=== PATIENT | male | born 1945 | race Caucasian/White ===

== ENCOUNTER 2018-11-28 16:18 | Emergency (ER) | payer OTHER ==
[2018-11-28] MEDS ORDERED: KETOROLAC 30 MG/ML INJ ONE (17:33)
[2018-11-28] MEDS ORDERED: predniSONE 20 MG TAB ONE (17:34)
--- NOTE | 2018-11-28 18:47 | ER ---
Nurse's Notes [facility] Name: Jimmie Gumsan Jr Age: 73 yrs Sex: Male : 1945 Arrival Date: 11/28/2018 Time: 16:20 Bed 20 Private MD: Diagnosis: Toxic effect of venom of wasps Presentation: 11/28 16:24 Presenting complaint: Patient states: stung by yellow jackets today around 1300, c/o sv pain, body aches, leg cramps. Transition of care: patient was not received from another setting of care. Onset: The symptoms/episode began/occurred acutely, 3 hour(s) ago. Anaphylaxis evaluation, no signs or symptoms of anaphylaxis were noted. Onset of symptoms was November 28, 2018. Risk Assessment: Do you want to hurt yourself or someone else? Patient reports no desire to harm self or others. Care prior to arrival: Medication(s) given: benadryl and motrin taken today. 16:24 Method Of Arrival: Ambulatory sv 16:24 Acuity: LOLA 2 sv 17:45 Initial Sepsis Screen: Does the patient meet any 2 criteria? No. Patient's initial em sepsis screen is negative. Does the patient have a suspected source of infection? No. Patient's initial sepsis screen is negative. Historical: - Allergies: 16:25 Codeine; sv - Immunization history:: Adult Immunizations up to date. - Social history:: Smoking status: Patient/guardian denies using tobacco. - Ebola Screening: : Patient negative for fever greater than or equal to 101.5 degrees Fahrenheit, and additional compatible Ebola Virus Disease symptoms Patient denies exposure to infectious person Patient denies travel to an Ebola-affected area in the 21 days before illness onset No symptoms or risks identified at this time. Screenin:40 Abuse screen: Denies threats or abuse. Nutritional screening: No deficits noted. em Tuberculosis screening: No symptoms or risk factors identified. Fall Risk None identified. Assessment: 17:45 General: Appears in no apparent distress. comfortable, Behavior is calm, cooperative, em Denies fever. Pain: Complains of pain in left hand, right side of neck, back Pain currently is 8 out of 10 on a pain scale. Quality of pain is described as burning, sharp. Neuro: Level of Consciousness is awake, alert, obeys commands, Oriented to person, place, time, situation, Appropriate for age Moves all extremities. Speech is normal. Cardiovascular: Denies chest pain, lightheadedness, nausea, shortness of breath, Capillary refill < 3 seconds Patient's skin is warm and dry. Respiratory: Airway is patent Respiratory effort is even, unlabored, Respiratory pattern is regular, symmetrical, Breath sounds are clear bilaterally. Denies shortness of breath. GI: Abdomen is flat, Patient currently denies nausea, vomiting. Derm: Skin is intact, is healthy with good turgor, Skin is pink, warm \T\ dry. Musculoskeletal: Capillary refill < 3 seconds, Range of motion: intact in all extremities. 17:59 Reassessment: I agree with previous assessment. hb 18:46 Reassessment: Patient appears in no apparent distress at this time. Patient and/or em family updated on plan of care and expected duration. Pain level reassessed. Patient is alert, oriented x 3, equal unlabored respirations, skin warm/dry/pink. rates pain 5/10 Patient states feeling better. Vital Signs: 16:25 BP 161 / 105; Pulse 70; Resp 16; Temp 98.7; Pulse Ox 96% ; Weight 74.84 kg; Height 5 sv ft. 8 in. (172.72 cm); 18:00 BP 148 / 92; Pulse 64; Resp 18; Pulse Ox 97% on R/A; Pain 8/10; em 18:46 BP 163 / 91; Pulse 59; Resp 16; Pulse Ox 99% on R/A; Pain 5/10; em 16:25 Body Mass Index 25.09 (74.84 kg, 172.72 cm) sv ED Course: 16:20 Patient arrived in ED. rg4 16:25 Triage completed. sv 16:26 Arm band placed on. sv 17:13 Tono Orellana LVN is Primary Nurse. em 17:14 Shabbir Nicole PA is PHCP. jr8 17:14 Nolberto Lanza MD is Attending Physician. jr8 17:45 Patient has correct armband on for positive identification. Placed in gown. Bed in low em position. Call light in reach. Pulse ox on. NIBP on. 18:55 No provider procedures requiring assistance completed. Patient did not have IV access em during this emergency room visit. Administered Medications: 17:29 CANCELLED (Other Intervention Used): [place] (7.5 mg-325 mg) 1 tabs PO once; RASS on jr8 ADMIN: Combtv4, Very Agttd3, Agttd2, Rstlss1, AlertClm0, Drwsy-1, Lt Sdtn-2, Mod Sdtn-3, Dp Sdtn-4, UnArsble-5 18:05 Drug: predniSONE 40 mg Route: PO; em 18:55 Follow up: Response: No adverse reaction em 18:05 Drug: TORadol - Ketorolac 15 mg Route: IM; Site: right deltoid; em 18:55 Follow up: Response: No adverse reaction; Pain is decreased em Outcome: 18:45 Discharge ordered by . jr8 18:55 Discharged to home ambulatory, with family. em 18:55 Condition: good 18:55 Discharge instructions given to patient, family, Instructed on discharge instructions, follow up and referral plans. medication usage, Demonstrated understanding of instructions, follow-up care, medications, Prescriptions given X 1. 18:56 Patient left the ED. em Signatures: Kasey Bustos, RN RN Tono Marrero, GARMENT PARTS CUTTER HAND GARMENT PARTS CUTTER HAND em Shabbir Nicole PA PA jr8 Gloria Page, Lazara Reed RN rg4
--- NOTE | 2018-11-28 18:47 | EDPHYS ---
Physician Documentation [facility] Name: Jimmie Gusman Jr Age: 73 yrs Sex: Male : 1945 Arrival Date: 11/28/2018 Time: 16:20 Bed 20 Private MD: ED Physician Nolberto Lanza HPI: 11/28 18:20 This 73 yrs old Male presents to ER via Ambulatory with complaints of Bee jr8 Sting. 18:20 Onset: The symptoms/episode began/occurred 6 hour(s) ago. The patient has not jr8 experienced similar symptoms in the past. The patient has not recently seen a physician. Pt reports he was stung by about 8 bees at home at about 1200 today. Bites behind right ear, back, left arm. Pt reports pain in JOSIE forearms. At home pt took 25mg benadryl, excedrine, and ibuprofen. No signs of anaphylaxis.. Historical: - Allergies: 16:25 Codeine; sv - Immunization history:: Adult Immunizations up to date. - Social history:: Smoking status: Patient/guardian denies using tobacco. - Ebola Screening: : Patient negative for fever greater than or equal to 101.5 degrees Fahrenheit, and additional compatible Ebola Virus Disease symptoms Patient denies exposure to infectious person Patient denies travel to an Ebola-affected area in the 21 days before illness onset No symptoms or risks identified at this time. ROS: 18:20 Constitutional: Negative for fever, chills, and weight loss, Eyes: Negative for injury, jr8 pain, redness, and discharge, ENT: Negative for injury, pain, and discharge, Neck: Negative for injury, pain, and swelling, Cardiovascular: Negative for chest pain, palpitations, and edema, Respiratory: Negative for shortness of breath, cough, wheezing, and pleuritic chest pain, Abdomen/GI: Negative for abdominal pain, nausea, vomiting, diarrhea, and constipation, Back: Negative for injury and pain, Neuro: Negative for headache, weakness, numbness, tingling, and seizure. 18:20 Skin: Positive for multiple red raised papules with white centers behind right ear, on neck, back, and left arm. . Exam: 18:20 Constitutional: This is a well developed, well nourished patient who is awake, alert, jr8 and in no acute distress. Head/Face: Normocephalic, atraumatic. Eyes: Pupils equal round and reactive to light, extra-ocular motions intact. Lids and lashes normal. Conjunctiva and sclera are non-icteric and not injected. Cornea within normal limits. Periorbital areas with no swelling, redness, or edema. ENT: Nares patent. No nasal discharge, no septal abnormalities noted. Tympanic membranes are normal and external auditory canals are clear. Oropharynx with no redness, swelling, or masses, exudates, or evidence of obstruction, uvula midline. Mucous membranes moist. Neck: Trachea midline, no thyromegaly or masses palpated, and no cervical lymphadenopathy. Supple, full range of motion without nuchal rigidity, or vertebral point tenderness. No Meningismus. Chest/axilla: Normal chest wall appearance and motion. Nontender with no deformity. No lesions are appreciated. Cardiovascular: Regular rate and rhythm with a normal S1 and S2. No gallops, murmurs, or rubs. Normal PMI, no JVD. No pulse deficits. Respiratory: Lungs have equal breath sounds bilaterally, clear to auscultation and percussion. No rales, rhonchi or wheezes noted. No increased work of breathing, no retractions or nasal flaring. Abdomen/GI: Soft, non-tender, with normal bowel sounds. No distension or tympany. No guarding or rebound. No evidence of tenderness throughout. Back: No spinal tenderness. No costovertebral tenderness. Full range of motion. Neuro: Awake and alert, GCS 15, oriented to person, place, time, and situation. Cranial nerves II-XII grossly intact. Motor strength 5/5 in all extremities. Sensory grossly intact. Cerebellar exam normal. Normal gait. 18:20 Skin: Turgor: is good, multiple red raised papules with white center to neck, left arm, behind right ear. . Vital Signs: 16:25 BP 161 / 105; Pulse 70; Resp 16; Temp 98.7; Pulse Ox 96% ; Weight 74.84 kg; Height 5 sv ft. 8 in. (172.72 cm); 18:00 BP 148 / 92; Pulse 64; Resp 18; Pulse Ox 97% on R/A; Pain 8/10; em 18:46 BP 163 / 91; Pulse 59; Resp 16; Pulse Ox 99% on R/A; Pain 5/10; em 16:25 Body Mass Index 25.09 (74.84 kg, 172.72 cm) sv MDM: 17:14 Patient medically screened. jr8 18:42 Data reviewed: vital signs, nurses notes, and as a result, I will discharge patient. jr8 Data interpreted: Pulse oximetry: on room air is 97 %. Interpretation: normal. Counseling: I had a detailed discussion with the patient and/or guardian regarding: the historical points, exam findings, and any diagnostic results supporting the discharge/admit diagnosis, the need for outpatient follow up, a family practitioner, to return to the emergency department if symptoms worsen or persist or if there are any questions or concerns that arise at home. Response to treatment: the patient's symptoms have markedly improved after treatment. ED course: Patient feeling better. BP decreased. Will send home on prednisone . Administered Medications: 17:29 CANCELLED (Other Intervention Used): [place] (7.5 mg-325 mg) 1 tabs PO once; RASS on jr8 ADMIN: Combtv4, Very Agttd3, Agttd2, Rstlss1, AlertClm0, Drwsy-1, Lt Sdtn-2, Mod Sdtn-3, Dp Sdtn-4, UnArsble-5 18:05 Drug: predniSONE 40 mg Route: PO; em 18:55 Follow up: Response: No adverse reaction em 18:05 Drug: TORadol - Ketorolac 15 mg Route: IM; Site: right deltoid; em 18:55 Follow up: Response: No adverse reaction; Pain is decreased em Disposition: 11/29 08:56 Co-signature as Attending Physician, Nolberto Lanza MD I agree with the assessment and kdr plan of care. Disposition: 11/28/18 18:45 Discharged to Home. Impression: Toxic effect of venom of wasps. - Condition is Stable. - Discharge Instructions: Bee, Wasp, or Hornet Sting, Adult. - Prescriptions for Prednisone 20 mg Oral Tablet - take 1 tablet by ORAL route once daily for 5 days; 5 tablet. - Medication Reconciliation Form, Thank You Letter, Antibiotic Education, Prescription Opioid Use form. - Follow up: Private Physician; When: 2 - 3 days; Reason: Recheck today's complaints, Continuance of care, Re-evaluation by your physician. Follow up: Emergency Department; When: As needed; Reason: Trouble breathing, Worsening of condition. - Problem is new. - Symptoms have improved. Signatures: Kasey Bustos RN RN Nolberto Montemayor MD MD kdr Tono Orellana, WEB DEVELOPMENT INSTRUCTOR WEB DEVELOPMENT INSTRUCTOR em Sahbbir Nicole PA PA jr8 Corrections: (The following items were deleted from the chart) 11/28 17:29 17:25 [place] (7.5 mg-325 mg) 1 tabs PO once; RASS on ADMIN: Combtv4, Very Agttd3, jr8 Agttd2, Rstlss1, AlertClm0, Drwsy-1, Lt Sdtn-2, Mod Sdtn-3, Dp Sdtn-4, UnArsble-5 ordered. jr8 18:56 18:45 11/28/2018 18:45 Discharged to Home. Impression: Toxic effect of venom of wasps. em Condition is Stable. Forms are Medication Reconciliation Form, Thank You Letter, Antibiotic Education, Prescription Opioid Use. Follow up: Private Physician; When: 2 - 3 days; Reason: Recheck today's complaints, Continuance of care, Re-evaluation by your physician. Follow up: Emergency Department; When: As needed; Reason: Trouble breathing, Worsening of condition. Problem is new. Symptoms have improved. jr8
[2018-11-28 19:58] VITALS: TEMP 98.7
[2018-11-28 20:02] VITALS: BP 163/91; O2SAT 99
== END 2018-11-28 18:56 | disposition home or self-care (01) ==
LOC: ER 16:18
DX: T63.461A Toxic effect of venom of wasps, accidental (unintentional), initial encounter (principal); Y92.9 Unspecified place or not applicable; Z88.6 Allergy status to analgesic agent
CPT/HCPCS: 96372; 99283; J7512